=== PATIENT | male | born 1980 | race Hispanic/Latino ===

== ENCOUNTER 2018-12-23 08:55 | Emergency (ER) | payer OTHER ==
[~2018-12-23] VITALS: Ht 167.6 cm; Wt 93.9 kg
--- OUTSIDE RECORDS SUMMARY | 2018-12-23 08:58 | XMS REPORT | Clinical Summary ---
Author Author [facility] Organization [facility] Address Unknown Phone Unavailable Care Team Providers Care Advisor Consultant Name Role Phone PCP Unavailable Allergies No Known Allergies Medications Not on file Active Problems Not on file Encounters Care Team Description Date Type Specialty 12/20/2018 Emergency Emergency Medicine - 12/21/2018 12/20/2018 Travel [place] MD 12/19/2018 Emergency Emergency Medicine 12/19/2018 Travel after 12/22/2017 Social History Date Tobacco Use Types Packs/Day Years Used Never Assessed Sex Assigned at Date Recorded Not on file Industry Job Start Date Occupation Not on file Not on file Not on file Travel End Travel History Travel Start No recent travel history available. Last Filed Vital Signs Reading Time Taken Comments Vital Sign 143/97 12/20/2018 11:27 PM CDT Blood Pressure 85 12/20/2018 11:27 PM CDT Pulse 37.1 C (98.7 F) 12/20/2018 11:27 PM CDT Temperature 18 12/20/2018 11:27 PM CDT Respiratory Rate 95% 12/20/2018 11:27 PM CDT Oxygen Saturation - - Inhaled Oxygen Concentration 90.9 kg (200 lb 8 oz) 12/19/2018 2:34 PM CDT Weight - - Height - - Body Mass Index Plan of Treatment Health Maintenance Due Date Last Done Comments IMM Influenza Seasonal 05/03/2019May to October (>/=19 yrs) Results Not on fileafter 12/22/2017 Insurance Type Payer Benefit Subscriber ID Effective Phone Address Plan / Dates Group [employer] xxxxxxxxx 2013- [phone] [address] [address] [place] [address]
--- OUTSIDE RECORDS SUMMARY | 2018-12-23 08:58 | XMS REPORT ---
Author Author [facility] Address Unknown Phone Unavailable Care Team Providers Care Wildlife Ecologist Name Role Phone Unavailable Unavailable Problems This patient has no known problems. Allergies, Adverse Reactions, Alerts This patient has no known allergies or adverse reactions. Medications This patient has no known medications. Encounters Start Date/Time End Date/Time Encounter Type Admission Type Attending [facility] Care Facility Care Department Encounter ID 2018-12-20 23:27:00 2018-12-20 23:27:00 Emergency [facility] [id number] 2018-12-19 16:55:14 2018-12-19 16:55:14 Emergency [facility] [id number]
[2018-12-23 10:10] LABS: BASOPHILS % 0.2 % (0.0-1.0); EOSINOPHILS % 0.7 % (0.0-6.0); HEMATOCRIT 44.9 % (38.2-49.6); HEMOGLOBIN 15.7 g/dL (14.0-18.0); LYMPHOCYTES # (AUTO) 1.8 (1.0-3.2); MEAN CORPUSCULAR HEMOGLOBIN 30.4 pg (28-32); MONOCYTES # (AUTO) 0.4 (0.2-0.8); MONOCYTES % 6.4 % (4.4-11.3); NEUTROPHILS # (AUTO) 3.9 (2.1-6.9); NEUTROPHILS % 63.5 % (38.7-80.0); PLATELET COUNT 211 x10e3/uL (140-360); RED BLOOD COUNT 5.16 x10e6/uL (4.3-5.7); RED CELL DISTRIBUTION WIDTH 11.8 % (11.7-14.4)
[2018-12-23] MEDS ORDERED: SODIUM CHLORIDE 0.9% 1000ML 1,000 ML ONE (10:15)
[2018-12-23 10:16] LABS: BILIRUBIN,URINE NEGATIVE (NEGATIVE); CLARITY,URINE SL CLOUDY (CLEAR); COLOR,URINE YELLOW (YELLOW); KETONES,URINE 1+ (NEGATIVE); LEUKOCYTE ESTERASE ,URINE NEGATIVE (NEGATIVE); NITRITE,URINE NEGATIVE (NEGATIVE); PROTEIN,URINE DIPSTICK TRACE (NEGATIVE)
[2018-12-23] MEDS ORDERED: SODIUM CHLORIDE 0.9% 1000ML 1,000 ML IV STA (10:16)
[2018-12-23 10:32] LABS: ALANINE AMINOTRANSFERASE 198 IU/L (0-55); ALBUMIN 4.6 g/dL (3.5-5.0); ALBUMIN/GLOBULIN RATIO 1.5 (0.8-2.0); ALKALINE PHOSPHATASE 98 IU/L (40-150); ANION GAP 12.5 mmol/L (8-16); BLOOD UREA NITROGEN 21 mg/dL (7-26); BUN/CREATININE RATIO 17 (6-25); CARBON DIOXIDE 27 mmol/L (22-29); CHLORIDE 103 mmol/L (98-107); CREATININE, SERUM 1.26 mg/dL (0.72-1.25); EST GLOMERULAR FILTRATION RATE > 60 ML/MIN (60-); GLUCOSE 94 mg/dL (74-118); MAGNESIUM 2.1 MG/DL (1.3-2.1); POTASSIUM 3.5 mmol/L (3.5-5.1); SODIUM 139 mmol/L (136-145)
[2018-12-23 10:39] LABS: URINE UROBILINOGEN 0.2 mg/dL (0.2 - 1)
[2018-12-23 10:43] LABS: EPITHELIAL CELLS,URINE FEW /LPF
[2018-12-23 11:15] LABS: THYROID STIMULATING HORMONE 1.249 uIU/mL (0.350-4.940)
[2018-12-23 13:48] VITALS: BP 136/87
--- NOTE | 2018-12-23 13:57 | Diagnostic Imaging Report ---
Right upper quadrant abdominal ultrasound. History: <Right upper quadrant pain>. Comparison: <None available>. Discussion: Transverse and longitudinal images of the right upper quadrant of the abdomen were obtained demonstrating a liver of normal size measuring 13.3 cm in length. There is increased hepatic echogenicity. There is no evidence of a focal hepatic mass. The portal vein is patent with hepatopetal flow and is within normal limits measuring 11 mm in diameter. The common bile duct measuring 4 mm in diameter. The gallbladder is normal without evidence of wall thickening or pericholecystic fluid. The sonographic Hernandez's sign was negative. The right kidney is normal in size and echogenicity without evidence of hydronephrosis, stones, or mass and measures 9.6 x 4.7 x 5.7 cm. Limited evaluation of the pancreas and aorta. The IVC is patent. There is no evidence of free fluid. IMPRESSION: Increased hepatic echogenicity without evidence of an acute abnormality. Signed by: Dr. Himanshu Chadwick DO on 12/23/2018 1:54 PM
== END 2018-12-23 13:54 | disposition home or self-care (01) ==
LOC: ER 08:55
DX: R53.1 Weakness (principal); R53.83 Other fatigue; B34.9 Viral infection, unspecified
CPT/HCPCS: 36415; 76705; 80053; 81001; 83518; 83735; 84443; 85025; 86308; 87070; 99284; J7030